=== PATIENT | female | born 1950 | race African-American/Black ===

== ENCOUNTER → 2017-09-17 | Outpatient (CLI) | payer MEDICARE, BC ==
--- NOTE | 2017-09-17 10:57 | RAD ---
Abdomen, 2 views, 09/17/2017: History: Abdominal pain Gas is present in large and small bowel without significant bowel dilatation. There is a moderate amount of stool in the colon. No free air seen in the abdomen. There is no evidence of organomegaly or abnormal abdominal calcification. Mild spurring is present in the lumbar spine. IMPRESSION: No acute abdominal abnormality is detected.
== END | disposition home or self-care (01) ==
LOC: PMG 10:26
PROVIDERS: ATTEND Family Medicine
DX: R10.84 Generalized abdominal pain (principal)
CPT/HCPCS: 74021

== ENCOUNTER → 2018-06-19 | Outpatient (CLI) | payer MEDICARE, BC ==
[2018-06-19 12:51] LABS: ALBUMIN 3.9 g/dL (3.4-5.0); CALCIUM 9.2 mg/dL (8.5-10.1); CREATININE 0.7 mg/dL (0.6-1.0); GFR 100.7; POTASSIUM 3.7 mmol/L (3.5-5.1); TOTAL BILIRUBIN 0.4 mg/dL (0.2-1.0); TOTAL PROTEIN 7.7 g/dL (6.4-8.2)
== END | disposition home or self-care (01) ==
LOC: RAD 11:25
PROVIDERS: ATTEND Family Medicine
DX: M79.604 Pain in right leg (principal); E78.5 Hyperlipidemia, unspecified
CPT/HCPCS: 36415; 80053; 80061; 85379

== ENCOUNTER 2018-07-15 09:06 | Emergency (ER) | payer MEDICARE, BC ==
[~2018-07-15] VITALS: Ht 160 cm; Wt 58.5 kg
[2018-07-15] MEDS ORDERED: ASPIRIN 81 MG TAB.CHEW PO ONE (09:45)
[2018-07-15 10:10] LABS: BASO % 1 % (0-3); EOS # 0.1 x10^3/uL (0.0-0.7); EOS % 2 % (0-3); HEMATOCRIT 40.2 % (36.0-47.0); HEMOGLOBIN 12.9 g/dL (12.0-15.5); LYMPH # 0.9 x10^3/uL (1.0-4.8); LYMPH % 22 % (24-48); MEAN CORPUSCULAR HEMOGLOBIN 27 pg (25-35); MEAN CORPUSCULAR HGB CONC 32 g/dL (31-37); MEAN CORPUSCULAR VOLUME 84 fL (79-100); MONO # 0.4 x10^3/uL (0.0-1.1); MONO % 9 % (0-9); NEUT # 2.8 x10^3uL (1.8-7.7); NEUT % 67 % (31-73); PLATELET COUNT 172 x10^3/uL (140-400); RED BLOOD COUNT 4.81 x10^6/uL (3.50-5.40); RED CELL DISTRIBUTION WIDTH 14.1 % (11.5-14.5); WHITE BLOOD COUNT 4.2 x10^3/uL (4.0-11.0)
[2018-07-15 10:26] LABS: ALBUMIN/GLOBULIN RATIO 1.1 (1.0-1.7); CALCIUM 9.2 mg/dL (8.5-10.1); CREATININE 0.8 mg/dL (0.6-1.0); GFR 86.3; MAGNESIUM 2.4 mg/dL (1.8-2.4); POTASSIUM 3.9 mmol/L (3.5-5.1); TOTAL BILIRUBIN 0.5 mg/dL (0.2-1.0); TOTAL PROTEIN 7.8 g/dL (6.4-8.2)
--- NOTE | 2018-07-15 10:28 | RAD ---
Chest, 2 views, 07/15/2018: HISTORY: Chest pain The heart size is normal. No pulmonary infiltrate is seen. There is no evidence of pleural fluid. Mild scattered spurs are present in the spine. IMPRESSION: No acute cardiopulmonary abnormality is detected. Electronically signed by: Arnulfo Grissom MD (07/15/2018 10:24 AM) [facility]
--- NOTE | 2018-07-15 10:29 | RAD ---
Right upper quadrant abdominal ultrasound, 07/15/2018: HISTORY: Abdominal pain The gallbladder is within normal limits in size. There is no sonographic evidence of cholelithiasis. The gallbladder wall is not thickened. No bile duct dilatation is seen. The visualized portions of the liver, pancreas and right kidney are unremarkable. IMPRESSION: No significant abnormality is detected. Electronically signed by: Arnulfo Grissom MD (07/15/2018 10:26 AM) [facility]
--- NOTE | 2018-07-15 10:37 | PHYS DOC ---
Past History Past Medical History: High Cholesterol, Hypertension Past Surgical History: Appendectomy Smoking: Non-smoker Alcohol Use: None Drug Use: None Adult General Chief Complaint Chief Complaint: CHEST PAIN HPI HPI Patient is a 68 year old female who presents with complaining of chest pain. Patient complaining of intermittent episodes of substernal chest pain for the last 3 days that last about 5 minutes and radiated to bilateral shoulder and back without shortness of breath, nausea, palpitation, dizziness. Patient rated her pain 5/10 and states the pain getting better with some especial position. Patient denies history of cardiac event. Patient had history of hypertension, dyslipidemia and family history of coronary artery disease. Review of Systems Review of Systems Constitutional: Denies fever or chills [] Eyes: Denies change in visual acuity, redness, or eye pain [] HENT: Denies nasal congestion or sore throat [] Respiratory: Denies cough or shortness of breath [] Cardiovascular: No additional information not addressed in HPI [] GI: Denies abdominal pain, nausea, vomiting, bloody stools or diarrhea [] : Denies dysuria or hematuria [] Musculoskeletal: Denies back pain or joint pain [] Integument: Denies rash or skin lesions [] Neurologic: Denies headache, focal weakness or sensory changes [] Endocrine: Denies polyuria or polydipsia [] All other systems were reviewed and found to be within normal limits, except as documented in this note. Current Medications Current Medications Current Medications Medications (Trade) Dose Ordered Sig/Low Start Time Stop Time Status Last Admin Dose Admin Aspirin (Children'S Aspirin) 324 mg 1X ONCE 07/15/18 09:45 07/15/18 09:46 DC Allergies Allergies Allergies Coded Allergies Type Severity Reaction Last Updated Verified esomeprazole Allergy Severe Hypoxia 07/15/18 Yes Physical Exam Physical Exam Constitutional: Well developed, well nourished, mild distress, non-toxic appearance. [] HENT: Normocephalic, atraumatic, bilateral external ears normal, oropharynx moist, no oral exudates, nose normal. [] Eyes: PERRLA, EOMI, conjunctiva normal, no discharge. [] Neck: Normal range of motion, no tenderness, supple, no stridor. [] Cardiovascular:Heart rate regular rhythm, no murmur [] Lungs & Thorax: Mild wheezing, reproducible substernal pain.[] Abdomen: Bowel sounds normal, soft, no tenderness, no masses, no pulsatile masses. [] Skin: Warm, dry, no erythema, no rash. [] Back: No tenderness, no CVA tenderness. [] Extremities: No tenderness, no cyanosis, no clubbing, ROM intact, no edema. [] Neurologic: Alert and oriented X 3, normal motor function, normal sensory function, no focal deficits noted. [] Psychologic: Affect normal, judgement normal, mood normal. [] Current Patient Data Vital Signs Vital Signs Date Time Temp Pulse Resp B/P (MAP) Pulse Ox O2 Delivery O2 Flow Rate FiO2 07/15/18 10:00 66 22 100 Room Air Lab Results Laboratory Tests Test 07/15/18 09:45 White Blood Count 4.2 x10^3/uL (4.0-11.0) Red Blood Count 4.81 x10^6/uL (3.50-5.40) Hemoglobin 12.9 g/dL (12.0-15.5) Hematocrit 40.2 % (36.0-47.0) Mean Corpuscular Volume 84 fL (79-100) Mean Corpuscular Hemoglobin 27 pg (25-35) Mean Corpuscular Hemoglobin Concent 32 g/dL (31-37) Red Cell Distribution Width 14.1 % (11.5-14.5) Platelet Count 172 x10^3/uL (140-400) Neutrophils (%) (Auto) 67 % (31-73) Lymphocytes (%) (Auto) 22 % (24-48) L Monocytes (%) (Auto) 9 % (0-9) Eosinophils (%) (Auto) 2 % (0-3) Basophils (%) (Auto) 1 % (0-3) Neutrophils # (Auto) 2.8 x10^3uL (1.8-7.7) Lymphocytes # (Auto) 0.9 x10^3/uL (1.0-4.8) L Monocytes # (Auto) 0.4 x10^3/uL (0.0-1.1) Eosinophils # (Auto) 0.1 x10^3/uL (0.0-0.7) Basophils # (Auto) 0.0 x10^3/uL (0.0-0.2) Prothrombin Time 10.0 SEC (9.4-11.4) Prothrombin Time INR 1.0 (0.9-1.1) Sodium Level 138 mmol/L (136-145) Potassium Level 3.9 mmol/L (3.5-5.1) Chloride Level 103 mmol/L (98-107) Carbon Dioxide Level 26 mmol/L (21-32) Anion Gap 9 (6-14) Blood Urea Nitrogen 11 mg/dL (7-20) Creatinine 0.8 mg/dL (0.6-1.0) Estimated GFR (Cockcroft-Gault) 86.3 BUN/Creatinine Ratio 14 (6-20) Glucose Level 97 mg/dL (70-99) Calcium Level 9.2 mg/dL (8.5-10.1) Magnesium Level 2.4 mg/dL (1.8-2.4) Total Bilirubin 0.5 mg/dL (0.2-1.0) Aspartate Amino Transferase (AST) 23 U/L (15-37) Alanine Aminotransferase (ALT) 26 U/L (14-59) Alkaline Phosphatase 90 U/L (46-116) Creatine Kinase 126 U/L (26-192) Troponin I Quantitative < 0.017 ng/mL (0-0.055) DS-Qbl-T-Type Natriuretic Peptide 63 pg/mL (0-124) Total Protein 7.8 g/dL (6.4-8.2) Albumin 4.0 g/dL (3.4-5.0) Albumin/Globulin Ratio 1.1 (1.0-1.7) Lipase 574 U/L (73-393) H EKG EKG EKG interpreted by me. EKG at 0 926 showed normal sinus rhythm at rate of 63, leftward axis, LVH, no acute ST and T-wave abnormalities. Radiology/Procedures Radiology/Procedures [address] [address] IMAGING REPORT Signed PATIENT: ENRIQUE NOBLES ACCOUNT: [id number] : 1950 LOCATION: ER AGE: 68 SEX: F EXAM STATUS: REG ER ORD. PHYSICIAN: BIBI VELASCO MD REASON: chest pain PROCEDURE: CHEST PA & LATERAL Chest, 2 views, 07/15/2018: HISTORY: Chest pain The heart size is normal. No pulmonary infiltrate is seen. There is no evidence of pleural fluid. Mild scattered spurs are present in the spine. IMPRESSION: No acute cardiopulmonary abnormality is detected. Electronically signed by: Arnulfo Grissom MD (07/15/2018 10:24 AM) [facility] DICTATED AND SIGNED BY: ARNULFO GRISSOM MD DATE: 07/15/18 1023 CC: BIBI VELASCO MD; JASON COON MD ~ [place] [address] IMAGING REPORT Signed PATIENT: ENRIQUE NOBLES ACCOUNT: [id number] : 1950 LOCATION: ER AGE: 68 SEX: F EXAM STATUS: REG ER ORD. PHYSICIAN: BIBI VELASCO MD REASON: epigastric pain PROCEDURE: ABDOMEN LTD Right upper quadrant abdominal ultrasound, 07/15/2018: HISTORY: Abdominal pain The gallbladder is within normal limits in size. There is no sonographic evidence of cholelithiasis. The gallbladder wall is not thickened. No bile duct dilatation is seen. The visualized portions of the liver, pancreas and right kidney are unremarkable. IMPRESSION: No significant abnormality is detected. Electronically signed by: Arnulfo Grissom MD (07/15/2018 10:26 AM) [facility] DICTATED AND SIGNED BY: ARNULFO GRISSOM MD DATE: 07/15/18 1024 CC: BIBI VELASCO MD; JASON COON MD ~ Course & Med Decision Making Course & Med Decision Making Pertinent Labs and Imaging studies reviewed. (See chart for details) Evaluation of patient in ER showed 68-year-old male patient with intermittent episodes of substernal and epigastric pain for the last 2 days. Patient had history of upper GI endoscopy one week ago without problem. Patient had unremarkable physical exam except for substernal reproducible pain. Patient had mild elevation of lipase. Patient denies pain while she was in ER and instructed to follow with liquids diarrhea and intense ER if not getting better. Patient psychiatric follow-up with her supervisor pairing and inspecting and GI specialist. Dragon Disclaimer Dragon Disclaimer This electronic medical record was generated, in whole or in part, using a voice recognition dictation system. Departure Departure: Impression: Primary Impression: Acute pancreatitis Additional Impression: Non-cardiac chest pain Disposition: HOME, SELF-CARE (at 1128) Condition: IMPROVED Referrals: JASON COON MD (PCP) Patient Instructions: Acute Pancreatitis, Chest Pain (Nonspecific) Additional Instructions: Drink plenty of liquids Follow-up with your primary care physician in 2-3 days Return to ER if not getting better Follow-up with your supervisor pairing and inspecting in for 1-2 days Take liquid diet for 2 days Scripts Pantoprazole Sodium (PROTONIX) 40 Mg Tablet.dr 1 TAB PO DAILY for pancreatitis, #10 TAB 0 Refills Prov: BIBI VELASCO MD 07/15/18 Tramadol Hcl (ULTRAM) 50 Mg Tablet 50 MG PO PRN Q6HRS PRN for PAIN, #20 TAB Prov: BIBI VELASCO MD 07/15/18 Problem Qualifiers BIBI VELASCO MD Jul 15, 2018 10:37
[2018-07-15 11:04] LABS: BILIRUBIN,URINE NEG (NEG); CLARITY,URINE CLEAR; COLOR,URINE YELLOW; GLUCOSE,URINE NEG (NEG); NITRITE,URINE NEG (NEG); RBC,URINE 0 /HPF (0-2); UROBILINOGEN,URINE 0.2 mg/dL (0.2 mg/dL); WBC,URINE 0 /HPF (0-4)
[2018-07-15 11:05] LABS: BACTERIA,URINE 0 /HPF (0-FEW); SQUAMOUS EPITHELIAL CELL,UR OCC /LPF
[2018-07-15] MEDS ORDERED: PANT20TA58 PO (11:34)
[2018-07-15] MEDS ORDERED: TRAM-48 PO (11:34)
[2018-07-15] MEDS ORDERED: PANT40TA3 PO ×2 (11:34→11:36)
[2018-07-15 11:50] VITALS: BP 162/75
--- NOTE | 2018-07-15 14:22 | EKG ---
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
== END 2018-07-15 11:50 | disposition home or self-care (01) ==
LOC: ER 09:06
DX: R07.2 Precordial pain (principal); K85.90 Acute pancreatitis without necrosis or infection, unspecified; E78.00 Pure hypercholesterolemia, unspecified; I10 Essential (primary) hypertension; Z90.89 Acquired absence of other organs; Z88.8 Allergy status to other drugs, medicaments and biological substances
CPT/HCPCS: 36415; 71046; 76705; 80053; 81001; 82550; 83690; 83735; 83880; 84484; 85025; 85610; 93005; 99284

== ENCOUNTER → 2019-07-05 | Outpatient (CLI) | payer MEDICARE ==
[~2019-07-05] MED LIST: PANT20TA58 PO; PANT40TA3 PO; TRAM-48 PO
--- NOTE | 2019-07-05 10:49 | RAD ---
EXAM: Dual energy x-ray absorptiometry (DEXA). HISTORY: Post menopausal screening. TECHNIQUE: Dual energy x-ray absorptiometry of the lumbar spine and the right hip was performed. T-score of average bone mineral density based was calculated based on standard deviations above or below the expected young adult normal value. Diagnostic definitions were established by the World Health Organization. FINDINGS: The average bone mineral density associated with L1-L4 is 1.025 g/cm^2, corresponding with a T-score of -1.3. The average total bone mineral density associated with the right hip is 0.702 g/cm^2, corresponding with a T-score of -2.1. No comparison examinations are available. Refer to the worksheets for full detail. IMPRESSION: 1. Osteopenia. Average bone mineral density yields a T-score between -1.0 and -2.5. Fracture risk is increased. Electronically signed by: Rita Hardy MD (07/05/2019 10:46 AM) [facility]
== END | disposition home or self-care (01) ==
LOC: DXRAD 09:53
PROVIDERS: ATTEND Physician Assistant Medical
DX: M85.88 Other specified disorders of bone density and structure, other site (principal); E28.39 Other primary ovarian failure; Z78.0 Asymptomatic menopausal state
CPT/HCPCS: 77080

== ENCOUNTER → 2019-08-05 | Outpatient (CLI) | payer MEDICARE ==
[~2019-08-05] MED LIST changes: +CONTRAST GIVEN MC PRN; +IOHEXOL 240 MG/ML 50ML VIAL. ONE
[2019-08-05] MEDS: IOHEXOL 300 MG/ML 75 ML VIAL. IV ONE (12:06)
--- NOTE | 2019-08-05 12:48 | RAD ---
CT study of the abdomen and pelvis with contrast Clinical indications: Upper abdominal pain. Possible pancreatitis. TECHNIQUE: After IV infusion of 75 cc of Omnipaque 300, helical CT scanning of the abdomen and pelvis was performed. GI contrast was administered per mouth. PQRS compliance Statement One or more of the following individualized dose reduction techniques were utilized for this study: 1. Automated exposure control 2. Adjustment of the mA and/or kV according to patient size 3. Use of iterative reconstruction technique COMPARISON: October 27, 2009. FINDINGS: The liver and spleen and pancreas are normal. Gallbladder is normal and no extra hepatic biliary ductal dilatation is seen. No adrenal mass is evident. No hydronephrosis or hydroureter or urinary tract stone is evident. Urinary bladder wall is smooth. Uterus is surgically absent. No focal aneurysmal dilatation of the abdominal aorta is seen. No enlarged abdominal or pelvic lymphadenopathy is evident. The appendix is not visualized. Patient has had an appendectomy. No obstructive bowel pattern is seen. Sigmoid diverticulosis is seen without diverticulitis. No free air or free fluid or mesenteric edema is seen. No lung base consolidation is evident. No lytic process is evident. IMPRESSION: No acute abnormality of the abdomen or pelvis. Electronically signed by: Joaquin Hood MD (08/05/2019 12:45 PM) [facility]
== END | disposition home or self-care (01) ==
LOC: PMG 10:43
PROVIDERS: ATTEND Family Medicine
DX: K57.30 Diverticulosis of large intestine without perforation or abscess without bleeding (principal); I10 Essential (primary) hypertension; Z90.710 Acquired absence of both cervix and uterus; Z90.89 Acquired absence of other organs
CPT/HCPCS: 74177; Q9966; Q9967

== ENCOUNTER → 2020-05-01 | Outpatient (CLI) | payer MEDICARE ==
[~2020-05-01] MED LIST changes: -CONTRAST GIVEN MC PRN; -IOHEXOL 240 MG/ML 50ML VIAL. ONE
--- NOTE | 2020-05-03 17:42 | RAD ---
DATE: 05/01/2020 10:30 AM EXAM: MAMMO HOLLIS SCREENING BILATERAL HISTORY: Screening COMPARISON: 06/14/2019, 03/24/2018 Bilateral XCCL, CC and MLO views of the breasts were performed. Bilateral breast tomosynthesis was performed in CC and MLO projections. This study was interpreted with the benefit of Computerized Aided Detection (CAD). FINDINGS: Breast Density: HETERO The breast parenchyma Is heterogeneously dense, which could reduce sensitivity of mammography. Breast parenchyma level C No suspicious masses, microcalcifications or architectural distortion is present to suggest malignancy in either breast. The visualized axillae are unremarkable. IMPRESSION: No mammographic evidence of malignancy. BI-RADS CATEGORY: 1 NEGATIVE RECOMMENDED FOLLOW-UP: 12M 12 MONTH FOLLOW-UP Annual screening mammography is recommended, unless clinically indicated sooner based on symptoms or change in physical exam. PQRS compliance statement: Patient information was entered into a reminder system with a target due date for the next mammogram. Mammography is a sensitive method for finding small breast cancers, but it does not detect them all and is not a substitute for careful clinical examination. A negative mammogram does not negate a clinically suspicious finding and should not result in delay in biopsying a clinically suspicious abnormality. "Our facility is accredited by the [employer] Mammography Program."
== END | disposition home or self-care (01) ==
LOC: MAMMO 10:23
PROVIDERS: ATTEND Family Medicine
DX: Z12.31 Encounter for screening mammogram for malignant neoplasm of breast (principal)
CPT/HCPCS: 77063; 77067

== ENCOUNTER → 2020-08-07 | Outpatient (CLI) | payer MEDICARE ==
--- NOTE | 2020-08-07 18:04 | CARD ---
MR#: [id number] Date of Study: 08/07/2020 Ordering Physician: ANGELITA FRIEDMAN, Referring Physician: ANGELITA FRIEDMAN, Tech: Batsheva Benjamin APPROVED REPORT EXAM: Two-dimensional and M-mode echocardiogram with Doppler and color Doppler. Other Information Quality : AverageHR: 51bpm INDICATION Hypertension/HCVD RISK FACTORS Hyperlipidemia 2D DIMENSIONS RVDd2.8 (2.9-3.5cm)Left Atrium(2D)3.4 (1.6-4.0cm) IVSd0.8 (0.7-1.1cm)Aortic Root(2D)2.9 (2.0-3.7cm) LVDd4.9 (3.9-5.9cm)LVOT Diameter2.0 (1.8-2.4cm) PWd0.7 (0.7-1.1cm)LVDs3.0 (2.5-4.0cm) FS (%) 37.6 %SV74.5 ml LVEF(%)67.6 (>50%) Aortic Valve AoV Peak Humble.143.5cm/sAoV VTI32.5cm AO Peak GR.8.2mmHgLVOT Peak Humble.93.7cm/s LVOT VTI 21.63cmAO Mean GR.4mmHg ARMAND (VMAX)2.10xw3YMN (VTI)2.14cm2 AI P 1/2 Xpcs876ln Mitral Valve MV E Itoigzdu42.9cm/sMV DECEL HGLX042ed MV A Jowdgleu78.9cm/sE/A Ratio1.0 Pulmonary Valve PV Peak Nmndomjw45.9cm/sPV Peak Grad.2mmHg Tricuspid Valve TR P. Wusvvmwg022pd/sRAP PSHFIAUH1gmZf TR Peak Gr.03mbXaHCJG01cyOn Pulmonary Vein S1 Jlpbkbix25.2cm/sD2 Izlsadzi81.4cm/s LEFT VENTRICLE The left ventricle is normal size. There is normal left ventricular wall thickness. The left ventricu lar systolic function is normal and the ejection fraction is within normal range. The Ejection Fracti on is 50-55%. There is normal LV segmental wall motion. Transmitral Doppler flow pattern is Grade II- pseudonormal filling dynamics. RIGHT VENTRICLE The right ventricle is normal size. There is normal right ventricular wall thickness. The right ventr icular systolic function is normal. ATRIA The left atrium size is normal. The right atrium size is normal. The interatrial septum is intact wit h no evidence for an atrial septal defect or patent foramen ovale as noted on 2-D or Doppler imaging. AORTIC VALVE The aortic valve is thickened but opens well. Doppler and Color Flow revealed mild aortic regurgitati on. There is no significant aortic valvular stenosis. Calculated aortic valve area is 2.1 cm2 with ma ximum pressure gradient of 8 mmHg and mean pressure gradient of 4 mmHg. MITRAL VALVE The mitral valve is thickened but opens well. There is no evidence of mitral valve prolapse. There is no mitral valve stenosis. Doppler and Color-flow revealed trace mitral regurgitation. TRICUSPID VALVE The tricuspid valve is normal in structure and function. Doppler and Color Flow revealed trace tricus pid regurgitation with an estimated PAP of 31 mmHg. There is no tricuspid valve stenosis. PULMONIC VALVE The pulmonic valve is not well visualized. Doppler and Color Flow revealed trace to mild pulmonic keena vular regurgitation. There is no pulmonic valvular stenosis. GREAT VESSELS The aortic root is normal in size. The IVC is normal in size and collapses >50% with inspiration. PERICARDIAL EFFUSION There is no evidence of significant pericardial effusion. Critical Notification Critical Value: No <Conclusion> The left ventricular systolic function is normal and the ejection fraction is within normal range. Th e Ejection Fraction is 50-55%. There is normal LV segmental wall motion. Doppler and Color Flow revealed mild aortic regurgitation. Signed by : Magdaleno Mcguire, Electronically Approved : 08/07/2020 18:04:08
== END ==
LOC: ECHO 07:50
PROVIDERS: ATTEND Internal Medicine Cardiovascular Disease
DX: I08.8 Other rheumatic multiple valve diseases (principal)
CPT/HCPCS: 93306

== ENCOUNTER 2020-11-16 15:53 | Emergency (ER) | payer MEDICARE ==
[~2020-11-16] VITALS: Ht 160 cm; Wt 57.2 kg
[2020-11-16] MEDS ORDERED: IV NORMAL SALINE 1,000ML 1,000 ML IV SCH (16:30)
--- NOTE | 2020-11-16 17:03 | RAD ---
Single view chest and two-view abdomen dated 03/18/2021. No comparison available. CLINICAL INDICATION: Chest pain. FINDINGS: Single upright portable exam performed. Heart and mediastinal contours within normal limits. Lungs ar e somewhat hyperinflated but otherwise clear. No consolidation or pleural effusion. No pneumothorax. Flat and upright views of the abdomen show nondilated gas-filled loops of bowel throughout. No abnorm al calcification. Moderate stool throughout the colon. No air-fluid level or pneumoperitoneum on the upright view. IMPRESSION: 1. Nonobstructive bowel gas pattern. 2. Clear lungs. Electronically signed by: Ghulam Watts MD (11/16/2020 5:01 PM) [facility]
--- NOTE | 2020-11-16 17:11 | EKG ---
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
[2020-11-16 18:01] LABS: BASO % 1 % (0-3); EOS # 0.1 x10^3/uL (0.0-0.7); EOS % 2 % (0-3); HEMATOCRIT 39.9 % (36.0-47.0); HEMOGLOBIN 12.8 g/dL (12.0-15.5); LYMPH # 1.3 x10^3/uL (1.0-4.8); LYMPH % 26 % (24-48); MEAN CORPUSCULAR HEMOGLOBIN 27 pg (25-35); MEAN CORPUSCULAR HGB CONC 32 g/dL (31-37); MEAN CORPUSCULAR VOLUME 84 fL (79-100); MONO # 0.4 x10^3/uL (0.0-1.1); MONO % 9 % (0-9); NEUT % 62 % (31-73); PLATELET COUNT 187 x10^3/uL (140-400); RED BLOOD COUNT 4.75 x10^6/uL (3.50-5.40); RED CELL DISTRIBUTION WIDTH 13.8 % (11.5-14.5); WHITE BLOOD COUNT 4.8 x10^3/uL (4.0-11.0)
[2020-11-16 18:15] LABS: BARBITURATES NEG (NEG); BENZODIAZEPINES NEG (NEG); CANNABINOIDS NEG (NEG); COCAINE NEG (NEG); METHADONE NEG (NEG); OPIATES NEG (NEG); PHENCYCLIDINE NEG (NEG)
[2020-11-16 18:17] LABS: AMPHETAMINE/METHAMPHETAMINE NEG (NEG)
[2020-11-16 18:41] LABS: BACTERIA,URINE 0 /HPF (0-FEW); BILIRUBIN,URINE NEG (NEG); CLARITY,URINE CLEAR; COLOR,URINE YELLOW; GLUCOSE,URINE NEG (NEG); NITRITE,URINE NEG (NEG); RBC,URINE 0 /HPF (0-2); SQUAMOUS EPITHELIAL CELL,UR FEW /LPF; UROBILINOGEN,URINE 0.2 mg/dL (0.2 mg/dL); WBC,URINE 0 /HPF (0-4)
--- NOTE | 2020-11-16 18:49 | PHYS DOC ---
Past History Past Medical History: GERD, High Cholesterol, Hypertension, Other Additional Past Medical Histor: leaky valve Past Surgical History: Appendectomy, Hysterectomy, Oophorectomy Smoking: Non-smoker Alcohol Use: None Drug Use: None General Adult EDM: Chief Complaint: CHEST PAIN HPI: HPI: 70-year-old female past medical history significant for hypertension, GERD and " leaky valve," on aspirin, presents the ED with complaints of sharp, nonradiating midsternal chest pain that occurs after eating certain, reports that her food is getting stuck and she has to put herself on a soft food diet such as applesauce and mashed potatoes for the past week. Reports history of dysphagia in [address] Morgan performing EGD and stretching her esophagus-pt can't recall if her sxs then are similar to today. Denies any current chest pain in the ED. States she called Dr. Oliver and has an EEG next Thursday. She came to the ed because she recalled eating peach pie from a restaurant that she heated up in a plastic container in the microwave on 10/29 (2 weeks ago). States after eating the pie she noticed pie contents leaked out of the container and she is worried the hole in the container she may have swallowed while eating the pie (She didn't want to tell Dr. Oliver this). Pt cut out the plastic piece and brought to the ed so that I could see the size of what she may have swallowed. No personal or family history of ACS, AAA, AAD, CTD (ehlos danlos or marfans), cardiac arrhythmias (need for AICD), sudden or unexplainable (under 50 years of age or with exertion), or clotting disorders. Patient has a diary of her most recent blood pressures. Today's blood pressure is consistent with her prior records. Patient reports no associated nausea, vomiting, diarrhea, melena, medic easier, hematemesis, fever, back pain, neurologic deficits, chest pain that Review of Systems: Review of Systems: Constitutional: Denies fever or chills Eyes: Denies change in visual acuity HENT: Denies nasal congestion or sore throat Respiratory: Denies cough or shortness of breath Cardiovascular: Denies chest pressure/tearing sensation or syncope GI: Denies abdominal pain, nausea, vomiting, bloody stools or diarrhea : Denies dysuria or hematuria Musculoskeletal: Denies back pain or joint pain Integument: Denies rash or diaphoresis Neurologic: Denies headache, focal weakness or sensory changes Endocrine: Denies polyuria or polydipsia Lymphatic: Denies swollen glands Psychiatric: Denies depression or anxiety Current Medications: Current Meds: Current Medications Medications (Trade) Dose Ordered Sig/Low Start Time Stop Time Status Last Admin Dose Admin Sodium Chloride 1,000 ml @ 1,000 mls/hr Q1H 11/16/20 16:30 11/16/20 16:34 DC Allergies: Allergies: Allergies Coded Allergies Type Severity Reaction Last Updated Verified esomeprazole Allergy Severe Hypoxia 11/16/20 Yes Physical Exam: PE: Constitutional: Well developed, well nourished, no acute distress, non-toxic appearance. HENT: Normocephalic, atraumatic, moist mucous membranes Eyes: EOMI, conjunctiva normal, no discharge. Neck: Normal range of motion, supple, Cardiovascular: S1/2 present, regular rhythm, no subcutaneous emphysema Lungs & Thorax: Speaking in full sentences, bilateral equal chest rise, no tachypnea or increased work of breathing Abdomen: soft, no tenderness, no peritonitis/guarding/rigidity, no reproducible symptoms, no Koehler sign Skin: Warm, dry, no erythema, no rash. [] Back: No midline tenderness, no CVA tenderness. [] Extremities: No tenderness, no cyanosis, no lower extremity edema Neurologic: Alert and oriented X 3, normal motor function, normal sensory function, no focal deficits noted. [] Psychologic: Affect normal, judgement normal, mood normal. [] Current Patient Data: Labs: Laboratory Tests Test 11/16/20 17:22 11/16/20 17:32 Urine Opiates Screen Neg (NEG) Urine Methadone Screen Neg (NEG) Urine Barbiturates Neg (NEG) Urine Phencyclidine Screen Neg (NEG) Urine Amphetamine/Methamphetamine Neg (NEG) Urine Benzodiazepines Screen Neg (NEG) Urine Cocaine Screen Neg (NEG) Urine Cannabinoids Screen Neg (NEG) Urine Ethyl Alcohol Neg (NEG) White Blood Count 4.8 x10^3/uL (4.0-11.0) Red Blood Count 4.75 x10^6/uL (3.50-5.40) Hemoglobin 12.8 g/dL (12.0-15.5) Hematocrit 39.9 % (36.0-47.0) Mean Corpuscular Volume 84 fL (79-100) Mean Corpuscular Hemoglobin 27 pg (25-35) Mean Corpuscular Hemoglobin Concent 32 g/dL (31-37) Red Cell Distribution Width 13.8 % (11.5-14.5) Platelet Count 187 x10^3/uL (140-400) Neutrophils (%) (Auto) 62 % (31-73) Lymphocytes (%) (Auto) 26 % (24-48) Monocytes (%) (Auto) 9 % (0-9) Eosinophils (%) (Auto) 2 % (0-3) Basophils (%) (Auto) 1 % (0-3) Neutrophils # (Auto) 3.0 x10^3uL (1.8-7.7) Lymphocytes # (Auto) 1.3 x10^3/uL (1.0-4.8) Monocytes # (Auto) 0.4 x10^3/uL (0.0-1.1) Eosinophils # (Auto) 0.1 x10^3/uL (0.0-0.7) Basophils # (Auto) 0.0 x10^3/uL (0.0-0.2) Vital Signs: Vital Signs Date Time Temp Pulse Resp B/P (MAP) Pulse Ox O2 Delivery O2 Flow Rate FiO2 11/16/20 16:14 98.1 71 15 153/63 (93) 99 Room Air EKG: EKG: [] Radiology/Procedures: Radiology/Procedures: Sinus rhythm with right bundle branch block V1-V3 TWI which could represent strain, no ST elevations or ST depressions Heart Score: C/O Chest Pain: Yes HEART Score for Chest Pain: HEART Score for Chest Pain Response (Comments) Value History Slighlty/Non-Suspicious 0 ECG Nonspecific Repolarizatio 1 Age > 65 2 Risk Factors 1 or 2 Risk Factors 1 Troponin < Normal Limit 0 Total 4 Risk Factors: Risk Factors: DM, Current or recent (<one month) smoker, HTN, HLP, family history of CAD, obesity. Risk Scores: Score 0 - 3: 2.5% MACE over next 6 weeks - Discharge Home Score 4 - 6: 20.3% MACE over next 6 weeks - Admit for Clinical Observation Score 7 - 10: 72.7% MACE over next 6 weeks - Early Invasive Strategies Course & Med Decision Making: Course & Med Decision Making Pertinent Labs and Imaging studies reviewed. (See chart for details) Concern for chest pain/odynophagia in the setting of prior esophageal motility disorder (strictures? achalsia?) for 1 week. Pt tolerates soft foods. No free air or FB on abdominal and chest xrays. Given age and risk factors for ACS (if trop neg, heart score 4), labs for trop are ordered and pending. No STEMI in ekg. Chest pain symptoms are atypical for cardiac etiology. Patient was signed out to Dr. Bella at shift change for further evaluation and disposition. Dragon Disclaimer: Dragon Disclaimer: This electronic medical record was generated, in whole or in part, using a voice recognition dictation system. Departure Departure: Impression: Primary Impression: Odynophagia Referrals: JASON COON MD (PCP) TAM MEANS DO Nov 16, 2020 18:49
[2020-11-16 19:05] LABS: CALCIUM 9.1 mg/dL (8.5-10.1); CREATININE 0.8 mg/dL (0.6-1.0); GFR 85.8; POTASSIUM 4.2 mmol/L (3.5-5.1)
[2020-11-16 19:17] LABS: ALBUMIN 3.9 g/dL (3.4-5.0); DIRECT BILIRUBIN 0.1 mg/dL (0.0-0.2); TOTAL BILIRUBIN 0.3 mg/dL (0.2-1.0); TOTAL PROTEIN 7.5 g/dL (6.4-8.2)
[2020-11-16 21:25] VITALS: BP 148/73
--- NOTE | 2020-11-16 22:17 | EKG ---
[address] [address] Test Date: 2020-11-16 Test Time: 20:27:41 Pat Name: ENRIQUE NOBLES Department: Room: Gender: F Pilot: : 1950 Requested By: MARYANNE FONTENOT Order Number: [id number] Reading MD: Measurements Intervals [place] Rate: 54 P: 75 NV: 158 QRS: -24 QRSD: 82 T: 39 QT: 424 QTc: 404 Interpretive Statements SINUS RHYTHM LEFTWARD AXIS INCOMPLETE RIGHT BUNDLE BRANCH BLOCK OTHERWISE NORMAL ECG RI6.02 No previous ECG available for comparison
== END 2020-11-16 21:25 | disposition home or self-care (01) ==
LOC: ER 15:53
DX: R07.9 Chest pain, unspecified (principal); K21.9 Gastro-esophageal reflux disease without esophagitis; E78.00 Pure hypercholesterolemia, unspecified; I10 Essential (primary) hypertension; R13.10 Dysphagia, unspecified; Z90.89 Acquired absence of other organs; Z90.710 Acquired absence of both cervix and uterus; Z90.722 Acquired absence of ovaries, bilateral; Z88.8 Allergy status to other drugs, medicaments and biological substances; Z79.899 Other long term (current) drug therapy
CPT/HCPCS: 36415; 71045; 74019; 80048; 80076; 80307; 81001; 82550; 83690; 83735; 83880; 84484; 85025; 85610; 85730; 93005; 99285-25

== ENCOUNTER 2021-05-15 17:42 | Emergency (ER) | payer MEDICARE ==
[~2021-05-15] VITALS: Ht 160 cm; Wt 58.0 kg
[2021-05-15 17:55] VITALS: BP 150/90
--- NOTE | 2021-05-15 18:42 | RAD ---
STUDY: CT head without contrast INDICATION: Headache. Blunt trauma. COMPARISON: None. TECHNIQUE: Axial CT imaging through the head without the use of intravenous contrast. Sagittal and co ap reformats were obtained. One or more of the following individualized dose reduction techniques were utilized for this examinat ion: 1. Automated exposure control 2. Adjustment of the mA and/or kV according to patient size 3. Use of iterative reconstruction technique. FINDINGS: No acute intracranial hemorrhage. No mass effect, midline shift or hydrocephalus. Browning-white matter d ifferentiation is maintained. No depressed calvarial fracture. Mild carotid siphon calcific atherosclerosis. No layering fluid seen within the visualized paranasal sinuses. Unremarkable mastoid air cells and middle ears. IMPRESSION: No acute intracranial abnormality by CT. Electronically signed by: MARTIN PALACIOS MD (05/15/2021 6:39 PM) [facility] [place]
--- NOTE | 2021-05-15 18:46 | PHYS DOC ---
Past History Past Medical History: GERD, High Cholesterol, Hypertension, Other Additional Past Medical Histor: leaky valve Past Surgical History: No Surgical History Smoking: Non-smoker Alcohol Use: None Drug Use: None General Adult EDM: Chief Complaint: HEADACHE HPI: HPI: Patient is a [age] year old [sex] who presents with [] Review of Systems: Review of Systems: Constitutional: Denies fever or chills Eyes: Denies redness or eye pain HENT: Denies nasal congestion or sore throat Respiratory: Denies cough or shortness of breath Cardiovascular: Denies chest pain or palpitations GI: Denies abdominal pain, nausea, or vomiting : Denies dysuria or hematuria Musculoskeletal: Denies back pain or joint pain Integument: Denies rash or skin lesions Neurologic: Denies headache, focal weakness or sensory changes Complete systems were reviewed and found to be within normal limits, except as documented in this note. Allergies: Allergies: Allergies Coded Allergies Type Severity Reaction Last Updated Verified esomeprazole Allergy Severe Hypoxia 11/16/20 Yes Physical Exam: PE: Constitutional: Well developed, well nourished, no acute distress, non-toxic appearance HENT: Normocephalic, atraumatic Eyes: PERRL, EOMI, conjunctiva normal, no discharge Neck: Normal range of motion, no tenderness, supple Lungs & Thorax: No respiratory distress, equal chest rise and fall Abdomen: Soft, no tenderness Skin: Warm, dry, no erythema, no rash Back: No tenderness, no CVA tenderness Extremities: No tenderness, ROM intact, no edema Neurologic: Alert and oriented X 3, normal motor function, normal sensory function, no focal deficits noted Psychologic: Affect normal, judgment normal Current Patient Data: Vital Signs: Vital Signs Date Time Temp Pulse Resp B/P (MAP) Pulse Ox O2 Delivery O2 Flow Rate FiO2 05/15/21 17:55 97.6 80 16 150/90 (110) 98 Room Air EKG: EKG: [] Radiology/Procedures: Radiology/Procedures: PROCEDURE: CT HEAD WO CONTRAST STUDY: CT head without contrast INDICATION: Headache. Blunt trauma. COMPARISON: None. TECHNIQUE: Axial CT imaging through the head without the use of intravenous contrast. Sagittal and coronal reformats were obtained. One or more of the following individualized dose reduction techniques were utilized for this examination: 1. Automated exposure control 2. Adjustment of the mA and/or kV according to patient size 3. Use of iterative reconstruction technique. FINDINGS: No acute intracranial hemorrhage. No mass effect, midline shift or hydrocephalus. Browning-white matter differentiation is maintained. No depressed calvarial fracture. Mild carotid siphon calcific atherosclerosis. No layering fluid seen within the visualized paranasal sinuses. Unremarkable mastoid air cells and middle ears. IMPRESSION: No acute intracranial abnormality by CT. Electronically signed by: MARTIN PALACIOS MD (05/15/2021 6:39 PM) [facility] Heart Score: C/O Chest Pain: N/A Course & Med Decision Making: Course & Med Decision Making Pertinent Labs and Imaging studies reviewed. (See chart for details) Patient stable for discharge with outpatient follow-up with PCP. Discussed findings and plan with patient, who acknowledges understanding and agreement. Dragon Disclaimer: Dragiris Disclaimer: This electronic medical record was generated, in whole or in part, using a voice recognition dictation system. Departure Departure: Impression: Primary Impression: Headache Qualified Codes: R51.9 - Headache, unspecified Additional Impression: Head contusion Qualified Codes: S00.93XA - Contusion of unspecified part of head, initial encounter Disposition: HOME / SELF CARE / HOMELESS Condition: STABLE Referrals: JASON COON MD (PCP) Patient Instructions: Head Injury, Adult, [id number], Headache, FAQs Additional Instructions: Use [id number] ibuprofen and or Tylenol for pain or discomfort. PRICILA YE DO May 15, 2021 18:46
== END 2021-05-15 18:55 | disposition home or self-care (01) ==
LOC: ER 17:42
DX: S00.93XA Contusion of unspecified part of head, initial encounter (principal); K21.9 Gastro-esophageal reflux disease without esophagitis; E78.00 Pure hypercholesterolemia, unspecified; I10 Essential (primary) hypertension; Z88.8 Allergy status to other drugs, medicaments and biological substances; W22.8XXA Striking against or struck by other objects, initial encounter; Y93.89 Activity, other specified; Y92.89 Other specified places as the place of occurrence of the external cause; Y99.8 Other external cause status
CPT/HCPCS: 70450; 99284

== ENCOUNTER → 2021-06-14 | Outpatient (CLI) | payer MEDICARE ==
[2021-05-15 17:55] VITALS: BP 150/90
--- NOTE | 2021-06-14 13:06 | RAD ---
INDICATION : Routine Screening. COMPARISON: May 2019 TECHNIQUE: Standard mammogram screening views of the bilateral breasts were obtained with 3D tomosynt hesis. CAD was utilized. FINDINGS: The breasts are scattered density. No definite suspicious mass. IMPRESSION: BI-RADS Category 1: Negative. The patient was placed into the recall system with a suggested recall date for follow up imaging. Mammography is the most sensitive method for finding small breast cancers, but it does not detect the m all and is not a substitute for careful clinical examination. A negative mammogram does not negate a clinically suspicious finding and should not result in delay in biopsying a clinically suspicious abnormality. Electronically signed by: Ramírez Worley MD (06/14/2021 1:03 PM) [id number]
== END ==
LOC: MAMMO 09:45
PROVIDERS: ATTEND Family Medicine
DX: Z12.31 Encounter for screening mammogram for malignant neoplasm of breast (principal)
CPT/HCPCS: 77063; 77067

== ENCOUNTER 2021-06-19 13:56 | Emergency (ER) | payer MEDICARE ==
[~2021-06-19] VITALS: Ht 160 cm; Wt 61.2 kg
--- NOTE | 2021-06-19 14:37 | PHYS DOC ---
Past History Past Medical History: GERD, High Cholesterol, Hypertension, Other Additional Past Medical Histor: leaky valve (MICHELLE RODAS) Past Surgical History: No Surgical History (MICHELLE RODAS) Smoking: Non-smoker Alcohol Use: None Drug Use: None (MICHELLE RODAS) General Adult EDM: Chief Complaint: LOWER EXT PAIN HPI: HPI: Patient is a 71 year old female with history of hyperlipidemia, hypertension and pancreatitis who presents with 4-week history of intermittent lower extremity pain. Patient describes the pain as "cramping" and migratory. She states that sometimes the pain lateralizes and sometimes it is bilateral. The pain also is intermittently in her proximal lower extremities versus distal lower extremities. Patient denies any exacerbating or remitting factors. She denies swelling, skin changes, tenderness, cough and shortness of breath. Patient reports a brief episode of 2 out of 10 chest pain on arrival to the emergency department. She reports it is since resolved. She denies history of CA, TIA/CVA, clots. Patient has not had any surgery or recent travel. (MICHELLE RODAS) Review of Systems: Review of Systems: Constitutional: Denies fever or chills Respiratory: See HPI Cardiovascular: Denies chest pain or edema GI: Denies abdominal pain, nausea, vomiting, bloody stools or diarrhea : Denies dysuria or hematuria Musculoskeletal: See HPI Integument: Denies rash or other skin lesions Neurologic: Denies headache, focal weakness or sensory changes (MICHELLE RODAS) Allergies: Allergies: Allergies Coded Allergies Type Severity Reaction Last Updated Verified esomeprazole Allergy Severe Hypoxia 11/16/20 Yes (MICHELLE RODAS) Physical Exam: PE: Constitutional: Well developed, well nourished, no acute distress, non-toxic appearance. Cardiovascular: Heart rate regular rhythm, no murmur. Lungs & Thorax: Bilateral breath sounds clear to auscultation. Skin: Warm, dry, no erythema, no rash. Extremities: No venous tract tenderness, no cyanosis, no clubbing, ROM intact, no edema, no unilateral swelling. Neurologic: Alert and oriented x3, normal motor function, normal sensory function, no focal deficits noted. (MICHELLE RODAS) Current Patient Data: Labs: Laboratory Tests Test 06/19/21 14:50 06/19/21 15:30 D-Dimer (Lotus) 0.52 mg/L (0.00-0.50) Sodium Level 136 mmol/L (136-145) Potassium Level 4.6 mmol/L (3.5-5.1) Chloride Level 101 mmol/L (98-107) Carbon Dioxide Level 29 mmol/L (21-32) Anion Gap 6 (6-14) Blood Urea Nitrogen 20 mg/dL (7-20) Creatinine 0.8 mg/dL (0.6-1.0) Estimated GFR (Cockcroft-Gault) 85.6 BUN/Creatinine Ratio 25 (6-20) Glucose Level 89 mg/dL (70-99) Calcium Level 9.9 mg/dL (8.5-10.1) Total Bilirubin 0.6 mg/dL (0.2-1.0) Aspartate Amino Transf (AST/SGOT) 45 U/L (15-37) Alanine Aminotransferase (ALT/SGPT) 63 U/L (14-59) Alkaline Phosphatase 97 U/L (46-116) Troponin I High Sensitivity 7 ng/L (4-50) Total Protein 8.3 g/dL (6.4-8.2) Albumin 4.2 g/dL (3.4-5.0) Albumin/Globulin Ratio 1.0 (1.0-1.7) White Blood Count 4.5 x10^3/uL (4.0-11.0) Red Blood Count 4.56 x10^6/uL (3.50-5.40) Hemoglobin 12.4 g/dL (12.0-15.5) Hematocrit 38.1 % (36.0-47.0) Mean Corpuscular Volume 83 fL (79-100) Mean Corpuscular Hemoglobin 27 pg (25-35) Mean Corpuscular Hemoglobin Concent 33 g/dL (31-37) Red Cell Distribution Width 14.3 % (11.5-14.5) Platelet Count 169 x10^3/uL (140-400) Neutrophils (%) (Auto) 60 % (31-73) Lymphocytes (%) (Auto) 26 % (24-48) Monocytes (%) (Auto) 10 % (0-9) Eosinophils (%) (Auto) 3 % (0-3) Basophils (%) (Auto) 1 % (0-3) Neutrophils # (Auto) 2.7 x10^3uL (1.8-7.7) Lymphocytes # (Auto) 1.2 x10^3/uL (1.0-4.8) Monocytes # (Auto) 0.4 x10^3/uL (0.0-1.1) Eosinophils # (Auto) 0.1 x10^3/uL (0.0-0.7) Basophils # (Auto) 0.1 x10^3/uL (0.0-0.2) Vital Signs: Vital Signs Date Time Temp Pulse Resp B/P (MAP) Pulse Ox O2 Delivery O2 Flow Rate FiO2 06/19/21 14:05 97.8 70 18 125/62 (83) 100 Room Air (MICHELLE RODAS) EKG: EKG: EKG Interpreted by Dr. Ye at 1457: Regular rate 57 bpm and rhythm with no ectopic beats. Right bundle debo block. No STEMI. (MICHELLE RODAS) Radiology/Procedures: Radiology/Procedures: PROCEDURE: PORTABLE CHEST 1V AP chest. HISTORY: Chest pain AP view was taken of the chest. There is no pneumothorax or pleural effusion. Heart is within normal limits in size. There are no acute infiltrates. IMPRESSION: 1. No acute chest disease. Electronically signed by: Andrez Parkinson MD (06/19/2021 2:40 PM) [id number] (MICHELLE RODAS) Heart Score: C/O Chest Pain: Yes HEART Score for Chest Pain: HEART Score for Chest Pain Response (Comments) Value History Slighlty/Non-Suspicious 0 ECG Normal 0 Age > 65 2 Risk Factors 1 or 2 Risk Factors 1 Troponin < Normal Limit 0 Total 3 Risk Factors: Risk Factors: HTN, HLD Risk Scores: Score 0 - 3: 2.5% MACE over next 6 weeks - Discharge Home Score 4 - 6: 20.3% MACE over next 6 weeks - Admit for Clinical Observation Score 7 - 10: 72.7% MACE over next 6 weeks - Early Invasive Strategies (MICHELLE RODAS) Course & Med Decision Making: Course & Med Decision Making Pertinent Labs and Imaging studies reviewed. (See chart for details) Patient's Wells score for DVT is 0, D-dimer will be ordered. Due to patient's complaint of chest pain, EKG and troponin ordered. Age-adjusted D-dimer allows for upper limit of 0.71 mg/L. This puts patient's d-dimer result well below age-adjusted cut off. Patient will be discharged home with instruction for muscle cramp treatment as well as return precautions for worsening symptoms or any chest discomfort. Patient understands and is agreeable to discharge plan. (MICHELLE RODAS) Dragon Disclaimer: Dragon Disclaimer: This electronic medical record was generated, in whole or in part, using a voice recognition dictation system. (MICHELLE RODAS) Departure Departure: Impression: Primary Impression: Bilateral leg cramps Disposition: HOME / SELF CARE / HOMELESS Condition: STABLE Referrals: JASON COON MD (PCP) Patient Instructions: Muscle Cramps, [id number] Additional Instructions: As discussed, your work-up in the emergency department today did not show any indication of blood clot or acute cardiac damage. You may follow-up with your primary care provider regarding any ongoing leg discomfort. Please return to the emergency department if your symptoms worsen or you develop new symptoms, especially chest discomfort or shortness of breath. Attending Signature Attending Signature I have reviewed the PA/HAND PACKAGER's note and plan of care. I was available for consultation as needed during the patient's visit in the emergency department. I agree with the clinical impression, plan, and disposition. (PRICILA YE DO) MICHELLE RODAS Jun 19, 2021 14:37 PRICILA YE DO Jun 19, 2021 23:21
--- NOTE | 2021-06-19 14:37 | EKG ---
[address] [address] Test Date: 2021-06-19 Test Time: 14:22:40 Pat Name: ENRIQUE NOBLES Department: Room: Gender: F Clinical Microbiologist: STEPHENIE : 1950 Requested By: MICHELLE RODAS Order Number: [id number] Reading MD: Woo Begum Measurements Intervals [place] Rate: 57 P: 71 [place]: 154 QRS: -33 QRSD: 122 T: 27 QT: 446 QTc: 437 Interpretive Statements SINUS RHYTHM ABNORMAL LEFT AXIS DEVIATION INCOMPLETE RIGHT BUNDLE BRANCH BLOCK NON SPECIFIC ST-T WAVE CHANGES ABNORMAL ECG RI6.02 Compared to ECG 11/16/2020 20:27:41 No significant changes Electronically Signed On 06-24-2021 10:09:12 FONDANT COOKER by Woo Begum
--- NOTE | 2021-06-19 14:42 | RAD ---
AP chest. HISTORY: Chest pain AP view was taken of the chest. There is no pneumothorax or pleural effusion. Heart is within normal limits in size. There are no acute infiltrates. IMPRESSION: 1. No acute chest disease. Electronically signed by: Andrez Parkinson MD (06/19/2021 2:40 PM) [id number]
[2021-06-19 15:52] LABS: CALCIUM 9.9 mg/dL (8.5-10.1); CREATININE 0.8 mg/dL (0.6-1.0); GFR 85.6; POTASSIUM 4.6 mmol/L (3.5-5.1)
[2021-06-19 15:59] LABS: ALBUMIN 4.2 g/dL (3.4-5.0); TOTAL BILIRUBIN 0.6 mg/dL (0.2-1.0); TOTAL PROTEIN 8.3 g/dL (6.4-8.2)
[2021-06-19 16:03] LABS: BASO # 0.1 x10^3/uL (0.0-0.2); BASO % 1 % (0-3); EOS # 0.1 x10^3/uL (0.0-0.7); EOS % 3 % (0-3); HEMATOCRIT 38.1 % (36.0-47.0); HEMOGLOBIN 12.4 g/dL (12.0-15.5); LYMPH # 1.2 x10^3/uL (1.0-4.8); LYMPH % 26 % (24-48); MEAN CORPUSCULAR HEMOGLOBIN 27 pg (25-35); MEAN CORPUSCULAR HGB CONC 33 g/dL (31-37); MEAN CORPUSCULAR VOLUME 83 fL (79-100); MONO # 0.4 x10^3/uL (0.0-1.1); MONO % 10 % (0-9); NEUT # 2.7 x10^3uL (1.8-7.7); NEUT % 60 % (31-73); PLATELET COUNT 169 x10^3/uL (140-400); RED BLOOD COUNT 4.56 x10^6/uL (3.50-5.40); RED CELL DISTRIBUTION WIDTH 14.3 % (11.5-14.5); WHITE BLOOD COUNT 4.5 x10^3/uL (4.0-11.0)
[2021-06-19 16:40] VITALS: BP 146/70
== END 2021-06-19 16:58 | disposition home or self-care (01) ==
LOC: ER 13:56
DX: R25.2 Cramp and spasm (principal); K21.9 Gastro-esophageal reflux disease without esophagitis; E78.5 Hyperlipidemia, unspecified; I10 Essential (primary) hypertension
CPT/HCPCS: 36415; 71045; 80053; 84484; 85025; 85379; 93005; 99285-25

== ENCOUNTER → 2021-06-25 | Outpatient (CLI) | payer MEDICARE ==
[2021-06-19 16:40] VITALS: BP 146/70
--- NOTE | 2021-06-25 14:32 | RAD ---
EXAMINATION: US BILATERAL LOWEREXTREMITY VENOUS DOPPLER (LOWER EXTREMITY VENOUS ULTRASOUND) CLINICAL HISTORY: Bilateral lower extremity pain TECHNIQUE: Sonographic grayscale images obtained of the bilateral lower extremity deep venous systems with color flow Doppler, compression, and augmentation techniques as indicated. Images obtained and stored in a permanent archive. COMPARISON: None FINDINGS: RIGHT: No evidence of absent flow or incompressibility within the common femoral vein, femoral vein, or popl iteal vein. Visualized calf veins appear patent on limited evaluation. LEFT: No evidence of absent flow or incompressibility within the common femoral vein, femoral vein, or popl iteal vein. Visualized calf veins appear patent on limited evaluation. IMPRESSION: No evidence of bilateral lower extremity DVT. Electronically signed by: Tony Verdugo DO (06/25/2021 2:29 PM) [facility]
== END ==
LOC: US 13:37
PROVIDERS: ATTEND Family Medicine
DX: M79.604 Pain in right leg (principal); M79.605 Pain in left leg
CPT/HCPCS: 93970